=== PATIENT | female | born 1965 ===

== ENCOUNTER 2019-09-13 00:03 | Day surgery (SDC) | payer OTHER ==
[~2019-09-13 00:03] MED LIST: ATOR20 PO; DYMISTA NASAL S23 GM NS; FAMO40; Loratadine10 MG PO; NEBI5 PO; PREG50 PO; XYZAL5 MG PO; Xolair150 MG; ZYRTEC10 M2
== END 2019-09-13 09:55 | disposition home or self-care (01) ==
LOC: ATC 00:03
DX: L50.1 Idiopathic urticaria (principal); I10 Essential (primary) hypertension; E78.00 Pure hypercholesterolemia, unspecified; Z88.8 Allergy status to other drugs, medicaments and biological substances; Z79.899 Other long term (current) drug therapy
CPT/HCPCS: J2357

== ENCOUNTER 2019-12-06 00:03 | Day surgery (SDC) | payer OTHER ==
--- NOTE | 2019-12-06 08:34 | NUR ---
PT DECLINES STAYING 30 MIN POST INJECTION. SHE REPORTS SHE NO LONGER DOES THIS, HAS BEEN TAKING XOLAIR FOR 5 YEARS. SHE REPORTS SHE CARRIES AN EPI EPN WITH HER AT ALL TIMES.
--- NOTE | 2019-12-06 08:49 | NUR ---
PT REPORTS SHE TOOK HER BP MEDS TODAY. SHE STATES SHE WILL RE CHECK HER BP WHEN SHE GETS HOME.
== END 2019-12-06 08:27 | disposition home or self-care (01) ==
LOC: ATC 00:03
DX: L50.1 Idiopathic urticaria (principal); I10 Essential (primary) hypertension; E78.00 Pure hypercholesterolemia, unspecified; Z79.899 Other long term (current) drug therapy; Z88.8 Allergy status to other drugs, medicaments and biological substances; J30.9 Allergic rhinitis, unspecified
CPT/HCPCS: 96372; J2357

== ENCOUNTER 2020-01-31 08:04 | Day surgery (SDC) | payer OTHER | END 2020-01-31 08:42 | disposition home or self-care (01) | LOC: ATC 08:04 | DX: L50.1 Idiopathic urticaria (principal); I10 Essential (primary) hypertension; G47.33 Obstructive sleep apnea (adult) (pediatric); E78.2 Mixed hyperlipidemia; Z79.899 Other long term (current) drug therapy | CPT/HCPCS: 96372; J2357 ==

== ENCOUNTER 2020-02-28 00:10 | Day surgery (SDC) | payer OTHER | END 2020-02-28 08:20 | disposition home or self-care (01) | LOC: ATC 00:10 | DX: L50.1 Idiopathic urticaria (principal); E78.5 Hyperlipidemia, unspecified; I10 Essential (primary) hypertension; G47.33 Obstructive sleep apnea (adult) (pediatric); Z79.899 Other long term (current) drug therapy; Z79.82 Long term (current) use of aspirin | CPT/HCPCS: 96372; J2357 ==

== ENCOUNTER 2020-03-27 00:31 | Day surgery (SDC) | payer OTHER | END 2020-03-27 08:22 | disposition home or self-care (01) | LOC: ATC 00:31 | DX: L50.1 Idiopathic urticaria (principal); E78.5 Hyperlipidemia, unspecified; I10 Essential (primary) hypertension; G47.33 Obstructive sleep apnea (adult) (pediatric); E78.2 Mixed hyperlipidemia; E66.3 Overweight; Z68.34 Body mass index [BMI] 34.0-34.9, adult; Z79.899 Other long term (current) drug therapy | CPT/HCPCS: J2357 ==

== ENCOUNTER 2020-04-24 00:18 | Day surgery (SDC) | payer OTHER | END 2020-04-24 08:22 | disposition home or self-care (01) | LOC: ATC 00:18 | DX: L50.1 Idiopathic urticaria (principal); E78.2 Mixed hyperlipidemia; G47.33 Obstructive sleep apnea (adult) (pediatric); I10 Essential (primary) hypertension; I69.398 Other sequelae of cerebral infarction; Z88.8 Allergy status to other drugs, medicaments and biological substances; Z79.899 Other long term (current) drug therapy | CPT/HCPCS: J2357 ==

== ENCOUNTER 2020-05-22 00:12 | Day surgery (SDC) | payer OTHER ==
--- NOTE | 2020-05-22 08:31 | NUR ---
PT DECLINES 30 MIN OBSERVATION POST INJECTION. NO HISTORY OF REACTION TO MED. PT TO RETURN TO HOSPITAL IF SHE EXPERIENCES ANY REACTIONS
== END 2020-05-22 08:30 | disposition home or self-care (01) ==
LOC: ATC 00:12
DX: L50.1 Idiopathic urticaria (principal); I10 Essential (primary) hypertension; G47.33 Obstructive sleep apnea (adult) (pediatric); E78.2 Mixed hyperlipidemia; E66.3 Overweight; Z68.34 Body mass index [BMI] 34.0-34.9, adult; Z88.8 Allergy status to other drugs, medicaments and biological substances
CPT/HCPCS: J2357

== ENCOUNTER 2020-06-19 00:07 | Day surgery (SDC) | payer OTHER | END 2020-06-19 08:26 | disposition home or self-care (01) | LOC: ATC 00:07 | DX: L50.1 Idiopathic urticaria (principal); E78.2 Mixed hyperlipidemia; I10 Essential (primary) hypertension; G47.33 Obstructive sleep apnea (adult) (pediatric); Z88.2 Allergy status to sulfonamides | CPT/HCPCS: 96372; J2357 ==

== ENCOUNTER 2020-07-17 00:18 | Day surgery (SDC) | payer OTHER | END 2020-07-17 08:24 | disposition home or self-care (01) | LOC: ATC 00:18 | DX: L50.1 Idiopathic urticaria (principal); I10 Essential (primary) hypertension; E78.2 Mixed hyperlipidemia | CPT/HCPCS: 96372; J2357 ==

== ENCOUNTER 2020-08-14 00:19 | Day surgery (SDC) | payer OTHER | END 2020-08-14 08:28 | disposition home or self-care (01) | LOC: ATC 00:19 | DX: L50.1 Idiopathic urticaria (principal); L50.8 Other urticaria; E78.5 Hyperlipidemia, unspecified; G47.33 Obstructive sleep apnea (adult) (pediatric); I10 Essential (primary) hypertension | CPT/HCPCS: 96372; J2357 ==

== ENCOUNTER 2020-09-11 00:35 | Day surgery (SDC) | payer OTHER ==
--- NOTE | 2020-09-11 08:39 | NUR ---
PT REFUSED TO STAY 30 MINUTES.
== END 2020-09-11 08:34 | disposition home or self-care (01) ==
LOC: ATC 00:35
DX: L50.1 Idiopathic urticaria (principal); I10 Essential (primary) hypertension
CPT/HCPCS: 96372; J2357

== ENCOUNTER 2020-10-09 00:24 | Day surgery (SDC) | payer MEDICARE, OTHER | END 2020-10-09 08:20 | disposition home or self-care (01) | LOC: ATC 00:24 | DX: L50.1 Idiopathic urticaria (principal); E78.5 Hyperlipidemia, unspecified; G47.33 Obstructive sleep apnea (adult) (pediatric); I10 Essential (primary) hypertension; I69.398 Other sequelae of cerebral infarction; Z79.82 Long term (current) use of aspirin | CPT/HCPCS: 96372; J2357 ==

== ENCOUNTER 2020-11-06 00:03 | Day surgery (SDC) | payer MEDICARE, OTHER | END 2020-11-06 08:20 | disposition home or self-care (01) | LOC: ATC 00:03 | DX: L50.1 Idiopathic urticaria (principal); I10 Essential (primary) hypertension; I69.398 Other sequelae of cerebral infarction; E78.2 Mixed hyperlipidemia; Z88.8 Allergy status to other drugs, medicaments and biological substances | CPT/HCPCS: 96372; J2357 ==

== ENCOUNTER 2020-12-04 00:07 | Day surgery (SDC) | payer MEDICARE, OTHER | END 2020-12-04 08:25 | disposition home or self-care (01) | LOC: ATC 00:07 | DX: L50.1 Idiopathic urticaria (principal); E78.2 Mixed hyperlipidemia; I10 Essential (primary) hypertension; I69.398 Other sequelae of cerebral infarction; Z79.899 Other long term (current) drug therapy | CPT/HCPCS: J2357 ==

== ENCOUNTER 2021-01-01 00:31 | Day surgery (SDC) | payer MEDICARE, OTHER ==
--- NOTE | 2021-01-01 08:45 | NUR ---
FAX REQUEST FOR NEW ORDERS AND NEW H&P SENT TO DR VICENTE. ORDERS 01/14/21 AND PT'S NEXT APPT IS 01/29/21. PT IS ALSO GOING TO CALL DR VICENTE'S OFFICE AND LET THEM KNOW TO SEND ORDERS AND TO LOOK FOR OUR FAX REQUEST.
== END 2021-01-01 08:25 | disposition home or self-care (01) ==
LOC: ATC 00:31
DX: L50.1 Idiopathic urticaria (principal); I10 Essential (primary) hypertension; E78.5 Hyperlipidemia, unspecified; Z88.8 Allergy status to other drugs, medicaments and biological substances
CPT/HCPCS: 96372; J2357

== ENCOUNTER 2021-03-26 05:45 | Day surgery (SDC) | payer MEDICARE, OTHER | END 2021-03-26 08:53 | disposition home or self-care (01) | LOC: ATC 05:45 | DX: L50.1 Idiopathic urticaria (principal) | CPT/HCPCS: 96372; J2357 ==

== ENCOUNTER 2021-05-21 03:52 | Day surgery (SDC) | payer MEDICARE, OTHER | END 2021-05-21 08:51 | disposition home or self-care (01) | LOC: ATC 03:52 | DX: L50.8 Other urticaria (principal) | CPT/HCPCS: J2357 ==

== ENCOUNTER 2021-06-18 03:33 | Day surgery (SDC) | payer MEDICARE, OTHER ==
[2021-06-18] MEDS ORDERED: MELO7.5 PO (08:45)
== END 2021-06-18 08:50 | disposition home or self-care (01) ==
LOC: ATC 03:33
DX: L50.8 Other urticaria (principal)
CPT/HCPCS: J2357

== ENCOUNTER 2021-06-29 06:45 | Day surgery (SDC) | payer MEDICARE, OTHER ==
[~2021-06-29] VITALS: Ht 165.1 cm; Wt 92.2 kg
[~2021-06-29 06:45] MED LIST changes: +MELO7.5 PO
--- NOTE | 2021-06-29 09:45 | NUR ---
06/29/21 0945 [facility] [facility] LATE ENTRY: 3CC OF LOCAL INJECTED BY SURGEON
== END 2021-06-29 09:48 | disposition home or self-care (01) ==
LOC: ORSCSDS 06:45
PROVIDERS: Orthopaedic Surgery
PROC: 0JBN0ZZ Excision of Right Lower Leg Subcutaneous Tissue and Fascia, Open Approach (ICD-10-PCS; principal; 2021-06-29 08:00)
DX: L72.0 Epidermal cyst (principal); I10 Essential (primary) hypertension; G47.33 Obstructive sleep apnea (adult) (pediatric); E78.00 Pure hypercholesterolemia, unspecified; I69.344 Monoplegia of lower limb following cerebral infarction affecting left non-dominant side; Z79.899 Other long term (current) drug therapy; Z79.82 Long term (current) use of aspirin
CPT/HCPCS: 88304; J0171; J0690; J1100; J1885; J2250; J2405; J2704; J3010; J7120

== ENCOUNTER 2021-07-16 01:52 | Day surgery (SDC) | payer MEDICARE, OTHER | END 2021-07-16 08:38 | disposition home or self-care (01) | LOC: ATC 01:52 | DX: L50.8 Other urticaria (principal) | CPT/HCPCS: J2357 ==

== ENCOUNTER 2021-08-13 01:55 | Day surgery (SDC) | payer MEDICARE, OTHER | END 2021-08-13 09:07 | disposition home or self-care (01) | LOC: ATC 01:55 | DX: L50.8 Other urticaria (principal) | CPT/HCPCS: J2357 ==

== ENCOUNTER 2021-09-10 01:36 | Day surgery (SDC) | payer MEDICARE, OTHER ==
[~2021-09-10 01:36] MED LIST changes: -Xolair150 MG; +Xolair150 MG SC
== END 2021-09-10 08:35 | disposition home or self-care (01) ==
LOC: ATC 01:36
DX: L50.8 Other urticaria (principal)
CPT/HCPCS: J2357

== ENCOUNTER 2021-11-05 00:56 | Day surgery (SDC) | payer MEDICARE, OTHER | END 2021-11-05 08:17 | disposition home or self-care (01) | LOC: ATC 00:56 | DX: L50.8 Other urticaria (principal) | CPT/HCPCS: 96372; J2357 ==

== ENCOUNTER 2021-12-03 00:22 | Day surgery (SDC) | payer MEDICARE, OTHER | END 2021-12-03 09:07 | disposition home or self-care (01) | LOC: ATC 00:22 | DX: L50.8 Other urticaria (principal) | CPT/HCPCS: 96372; J2357 ==

== ENCOUNTER 2021-12-31 02:03 | Day surgery (SDC) | payer MEDICARE, OTHER | END 2021-12-31 09:02 | disposition home or self-care (01) | LOC: ATC 02:03 | DX: L50.1 Idiopathic urticaria (principal) | CPT/HCPCS: J2357 ==

== ENCOUNTER 2022-01-27 00:33 | Day surgery (SDC) | payer MEDICARE, OTHER | END 2022-01-27 09:07 | disposition home or self-care (01) | LOC: ATC 00:33 | DX: L50.8 Other urticaria (principal) | CPT/HCPCS: 96372; J2357 ==

== ENCOUNTER 2022-03-25 00:43 | Day surgery (SDC) | payer MEDICARE, OTHER | END 2022-03-25 08:45 | disposition home or self-care (01) | LOC: ATC 00:43 | DX: L50.1 Idiopathic urticaria (principal) | CPT/HCPCS: 96372; J2357 ==

== ENCOUNTER 2022-04-22 01:09 | Day surgery (SDC) | payer MEDICARE, OTHER | END 2022-04-22 09:08 | disposition home or self-care (01) | LOC: ATC 01:09 | DX: L50.8 Other urticaria (principal) | CPT/HCPCS: 96372; J2357 ==

== ENCOUNTER 2022-05-20 02:06 | Day surgery (SDC) | payer MEDICARE, OTHER | END 2022-05-20 09:00 | disposition home or self-care (01) | LOC: ATC 02:06 | DX: L50.8 Other urticaria (principal) | CPT/HCPCS: 96372; J2357 ==

== ENCOUNTER 2022-07-15 00:33 | Day surgery (SDC) | payer MEDICARE, OTHER ==
[~2022-07-15 00:33] MED LIST changes: +ROSUVASTATIN CAL5 MG PO
== END 2022-07-15 08:42 | disposition home or self-care (01) ==
LOC: ATC 00:33
DX: L50.1 Idiopathic urticaria (principal)
CPT/HCPCS: J2357

== ENCOUNTER 2022-11-04 03:16 | Day surgery (SDC) | payer MEDICARE, OTHER ==
[~2022-11-04 03:16] MED LIST changes: +ATOR10 PO
[2022-11-04 08:34] VITALS: BP 145/76
== END 2022-11-04 08:40 | disposition home or self-care (01) ==
LOC: ATC 03:16
DX: L50.1 Idiopathic urticaria (principal)
CPT/HCPCS: 96372; J2357

== ENCOUNTER 2022-12-02 01:02 | Day surgery (SDC) | payer MEDICARE, OTHER ==
[2022-12-02 08:52] VITALS: BP 153/77
== END 2022-12-02 09:00 | disposition home or self-care (01) ==
LOC: ATC 01:02
DX: L50.0 Allergic urticaria (principal)
CPT/HCPCS: 96372; J2357

== ENCOUNTER 2022-12-30 02:14 | Day surgery (SDC) | payer MEDICARE, OTHER ==
[2022-12-30 08:37] VITALS: BP 159/82
[2022-12-30] MEDS ORDERED: CLOP75 PO (08:52)
[2022-12-30] MEDS ORDERED: Atarax10 MG PO (08:52)
== END 2022-12-30 08:42 | disposition home or self-care (01) ==
LOC: ATC 02:14
DX: L50.1 Idiopathic urticaria (principal); I10 Essential (primary) hypertension; Z88.8 Allergy status to other drugs, medicaments and biological substances; Z79.899 Other long term (current) drug therapy
CPT/HCPCS: 96372; J2357

== ENCOUNTER 2023-01-27 03:22 | Day surgery (SDC) | payer MEDICARE, OTHER ==
[~2023-01-27 03:22] MED LIST changes: +Atarax10 MG PO; +CLOP75 PO
[2023-01-27 08:44] VITALS: BP 154/81
== END 2023-01-27 08:52 | disposition home or self-care (01) ==
LOC: ATC 03:22
DX: L50.1 Idiopathic urticaria (principal); I10 Essential (primary) hypertension; Z88.8 Allergy status to other drugs, medicaments and biological substances
CPT/HCPCS: 96372; J2357

== ENCOUNTER 2023-02-24 00:09 | Day surgery (SDC) | payer MEDICARE, OTHER ==
[2023-02-24 08:59] VITALS: BP 151/90
== END 2023-02-24 09:07 | disposition home or self-care (01) ==
LOC: ATC 00:09
DX: L50.9 Urticaria, unspecified (principal); I10 Essential (primary) hypertension
CPT/HCPCS: 96372; J2357

== ENCOUNTER 2023-03-24 02:09 | Day surgery (SDC) | payer MEDICARE, OTHER ==
[2023-03-24 08:37] VITALS: BP 143/97
== END 2023-03-24 08:42 | disposition home or self-care (01) ==
LOC: ATC 02:09
DX: L50.9 Urticaria, unspecified (principal)
CPT/HCPCS: 96372; J2357

== ENCOUNTER 2023-04-21 02:55 | Day surgery (SDC) | payer MEDICARE, OTHER ==
[2023-04-21 08:54] VITALS: BP 171/92
== END 2023-04-21 09:00 | disposition home or self-care (01) ==
LOC: ATC 02:55
DX: L50.0 Allergic urticaria (principal); L50.1 Idiopathic urticaria; I10 Essential (primary) hypertension; Z88.8 Allergy status to other drugs, medicaments and biological substances; Z86.73 Personal history of transient ischemic attack (TIA), and cerebral infarction without residual deficits
CPT/HCPCS: 96372; J2357

== ENCOUNTER 2023-05-20 01:43 | Day surgery (SDC) | payer MEDICARE, OTHER ==
[2023-05-20 09:20] VITALS: BP 139/82
== END 2023-05-20 09:30 | disposition home or self-care (01) ==
LOC: ATC 01:43
DX: L50.1 Idiopathic urticaria (principal); Z86.73 Personal history of transient ischemic attack (TIA), and cerebral infarction without residual deficits
CPT/HCPCS: 96372; J2357

== ENCOUNTER 2023-06-16 01:54 | Day surgery (SDC) | payer MEDICARE, OTHER ==
[2023-06-16 09:11] VITALS: BP 144/91
== END 2023-06-16 09:20 | disposition home or self-care (01) ==
LOC: ATC 01:54
DX: L50.1 Idiopathic urticaria (principal); Z86.73 Personal history of transient ischemic attack (TIA), and cerebral infarction without residual deficits
CPT/HCPCS: 96372; J2357

== ENCOUNTER 2023-07-14 07:42 | Day surgery (SDC) | payer MEDICARE, OTHER ==
[~2023-07-14 07:42] MED LIST changes: +Omalizumab 150 MG Syringe SC SCH
[2023-07-14 09:05] VITALS: BP 148/72
== END 2023-07-14 09:05 | disposition home or self-care (01) ==
LOC: ATC 07:42
DX: L50.1 Idiopathic urticaria (principal); Z88.8 Allergy status to other drugs, medicaments and biological substances; Z79.899 Other long term (current) drug therapy
CPT/HCPCS: 96372; J2357

== ENCOUNTER 2023-11-04 03:36 | Day surgery (SDC) | payer MEDICARE, OTHER ==
[~2023-11-04 03:36] MED LIST changes: -Omalizumab 150 MG Syringe SC SCH
[2023-11-04] MEDS ORDERED: Omalizumab 150 MG Syringe SC SCH (06:55)
[2023-11-04 16:08] VITALS: BP 150/91
== END 2023-11-04 16:19 | disposition home or self-care (01) ==
LOC: ATC 03:36
DX: L50.0 Allergic urticaria (principal); E78.00 Pure hypercholesterolemia, unspecified; I10 Essential (primary) hypertension
CPT/HCPCS: 96372; J2357

== ENCOUNTER 2023-12-01 02:46 | Day surgery (SDC) | payer MEDICARE, OTHER ==
[2023-12-01] MEDS ORDERED: Omalizumab 150 MG Syringe SC SCH (06:00)
[2023-12-01 09:18] VITALS: BP 152/88
== END 2023-12-01 09:26 | disposition home or self-care (01) ==
LOC: ATC 02:46
DX: L50.9 Urticaria, unspecified (principal)
CPT/HCPCS: 96372; J2357

== ENCOUNTER 2024-01-27 01:18 | Day surgery (SDC) | payer MEDICARE, OTHER ==
[~2024-01-27 01:18] MED LIST changes: +AZELASTINE137 MCG/01; +EYE ALLERGY IT2.5 ML; +Flonase 0.05% N16 GM; +XOLAIR300 MG/2 M
[2024-01-27] MEDS ORDERED: Omalizumab 150 MG Syringe SC SCH (07:10)
[2024-01-27 09:01] VITALS: BP 158/85
[2024-01-27] MEDS ORDERED: Aspir 8181 MG PO (09:03)
== END 2024-01-27 09:10 | disposition home or self-care (01) ==
LOC: ATC 01:18
DX: L50.9 Urticaria, unspecified (principal); E89.41 Symptomatic postprocedural ovarian failure
CPT/HCPCS: 96372; J2357

== ENCOUNTER 2024-02-23 04:06 | Day surgery (SDC) | payer MEDICARE, OTHER ==
[~2024-02-23 04:06] MED LIST changes: +Aspir 8181 MG PO
[2024-02-23] MEDS ORDERED: Omalizumab 150 MG Syringe SC SCH (06:55)
[2024-02-23 09:07] VITALS: BP 146/75
== END 2024-02-23 09:08 | disposition home or self-care (01) ==
LOC: ATC 04:06
DX: T78.3XXA Angioneurotic edema, initial encounter (principal); I10 Essential (primary) hypertension; E78.00 Pure hypercholesterolemia, unspecified; E89.41 Symptomatic postprocedural ovarian failure; Z79.82 Long term (current) use of aspirin; Z79.899 Other long term (current) drug therapy; Z88.8 Allergy status to other drugs, medicaments and biological substances; Z86.73 Personal history of transient ischemic attack (TIA), and cerebral infarction without residual deficits
CPT/HCPCS: 96372; J2357

== ENCOUNTER 2024-03-22 01:44 | Day surgery (SDC) | payer MEDICARE, OTHER ==
[2024-03-22] MEDS ORDERED: Omalizumab 150 MG Syringe SC SCH (07:05)
[2024-03-22 08:57] VITALS: BP 147/98
== END 2024-03-22 09:02 | disposition home or self-care (01) ==
LOC: ATC 01:44
DX: L50.1 Idiopathic urticaria (principal); I10 Essential (primary) hypertension; E78.00 Pure hypercholesterolemia, unspecified; E89.40 Asymptomatic postprocedural ovarian failure; Z79.899 Other long term (current) drug therapy; Z88.8 Allergy status to other drugs, medicaments and biological substances; Z86.73 Personal history of transient ischemic attack (TIA), and cerebral infarction without residual deficits
CPT/HCPCS: 96372; J2357

== ENCOUNTER 2024-04-19 02:15 | Day surgery (SDC) | payer MEDICARE, OTHER ==
[2024-04-19] MEDS ORDERED: Omalizumab 150 MG Syringe SC SCH (06:50)
[2024-04-19 09:20] VITALS: BP 136/90
== END 2024-04-19 09:22 | disposition home or self-care (01) ==
LOC: ATC 02:15
DX: L50.1 Idiopathic urticaria (principal); I10 Essential (primary) hypertension; E78.00 Pure hypercholesterolemia, unspecified; Z79.899 Other long term (current) drug therapy
CPT/HCPCS: 96372; J2357

== ENCOUNTER 2024-05-17 03:01 | Day surgery (SDC) | payer MEDICARE, OTHER ==
[2024-05-17] MEDS ORDERED: Omalizumab 150 MG Syringe SC SCH (06:00)
[2024-05-17 08:57] VITALS: BP 140/91
== END 2024-05-17 09:02 | disposition home or self-care (01) ==
LOC: ATC 03:01
DX: L50.1 Idiopathic urticaria (principal); I10 Essential (primary) hypertension; E78.00 Pure hypercholesterolemia, unspecified; Z79.899 Other long term (current) drug therapy
CPT/HCPCS: 96372; J2357

== ENCOUNTER 2024-06-14 03:51 | Day surgery (SDC) | payer MEDICARE, OTHER ==
[2024-06-14] MEDS ORDERED: Omalizumab 150 MG Syringe SC SCH (07:25)
== END 2024-06-14 09:17 | disposition home or self-care (01) ==
LOC: ATC 03:51
DX: L50.1 Idiopathic urticaria (principal); E89.41 Symptomatic postprocedural ovarian failure; E78.00 Pure hypercholesterolemia, unspecified; I10 Essential (primary) hypertension
CPT/HCPCS: 96372; J2357

== ENCOUNTER 2024-07-12 01:23 | Day surgery (SDC) | payer MEDICARE, OTHER ==
[2024-07-12] MEDS ORDERED: Omalizumab 150 MG Syringe SC SCH (06:55)
[2024-07-12 08:57] VITALS: BP 148/85
== END 2024-07-12 09:03 | disposition home or self-care (01) ==
LOC: ATC 01:23
DX: L50.1 Idiopathic urticaria (principal); E89.41 Symptomatic postprocedural ovarian failure; E78.00 Pure hypercholesterolemia, unspecified; I10 Essential (primary) hypertension
CPT/HCPCS: 96372; J2357

== ENCOUNTER 2024-08-09 02:07 | Day surgery (SDC) | payer MEDICARE, OTHER ==
[2024-08-09] MEDS ORDERED: Omalizumab 150 MG Syringe SC SCH (07:05)
[2024-08-09 09:31] VITALS: BP 134/81
== END 2024-08-09 09:32 | disposition home or self-care (01) ==
LOC: ATC 02:07
DX: L50.1 Idiopathic urticaria (principal); I10 Essential (primary) hypertension; E78.00 Pure hypercholesterolemia, unspecified; Z79.82 Long term (current) use of aspirin; Z79.899 Other long term (current) drug therapy; Z86.73 Personal history of transient ischemic attack (TIA), and cerebral infarction without residual deficits
CPT/HCPCS: 96372; J2357

== ENCOUNTER 2024-09-06 02:09 | Day surgery (SDC) | payer MEDICARE, OTHER ==
[2024-09-06] MEDS ORDERED: Omalizumab 150 MG Syringe SC SCH (07:00)
[2024-09-06 09:20] VITALS: BP 154/78
== END 2024-09-06 09:24 | disposition home or self-care (01) ==
LOC: ATC 02:09
DX: L50.1 Idiopathic urticaria (principal); I10 Essential (primary) hypertension; Z79.899 Other long term (current) drug therapy
CPT/HCPCS: 96372; J2357

== ENCOUNTER 2024-10-04 05:51 | Day surgery (SDC) | payer MEDICARE, OTHER ==
[2024-10-04] MEDS ORDERED: Omalizumab 150 MG Syringe SC SCH (06:55)
[2024-10-04 09:00] VITALS: BP 163/94
== END 2024-10-04 09:11 | disposition home or self-care (01) ==
LOC: ATC 05:51
DX: L50.1 Idiopathic urticaria (principal); I10 Essential (primary) hypertension; Z79.899 Other long term (current) drug therapy
CPT/HCPCS: 96372; J2357

== ENCOUNTER 2024-11-01 08:31 | Day surgery (SDC) | payer MEDICARE, OTHER ==
[~2024-11-01 08:31] MED LIST changes: +Omalizumab 150 MG Syringe SC SCH
[2024-11-01 08:41] VITALS: BP 147/80
[2024-11-01] MEDS ORDERED: TRAZ50 PO (08:41)
== END 2024-11-01 08:46 | disposition home or self-care (01) ==
LOC: ATC 08:31
DX: L50.1 Idiopathic urticaria (principal); E89.41 Symptomatic postprocedural ovarian failure; I10 Essential (primary) hypertension; E78.00 Pure hypercholesterolemia, unspecified; Z86.73 Personal history of transient ischemic attack (TIA), and cerebral infarction without residual deficits; Z79.82 Long term (current) use of aspirin; Z79.899 Other long term (current) drug therapy
CPT/HCPCS: 96372; J2357

== ENCOUNTER 2024-11-29 05:16 | Day surgery (SDC) | payer MEDICARE, OTHER ==
[~2024-11-29 05:16] MED LIST changes: -Omalizumab 150 MG Syringe SC SCH; +TRAZ50 PO
[2024-11-29] MEDS ORDERED: Omalizumab 150 MG Syringe SC SCH (06:50)
[2024-11-29 09:27] VITALS: BP 152/79
== END 2024-11-29 09:32 | disposition home or self-care (01) ==
LOC: ATC 05:16
DX: L50.1 Idiopathic urticaria (principal); I10 Essential (primary) hypertension; Z79.899 Other long term (current) drug therapy; Z79.82 Long term (current) use of aspirin
CPT/HCPCS: 96372; J2357

== ENCOUNTER 2024-12-27 00:32 | Day surgery (SDC) | payer MEDICARE, OTHER ==
[2024-12-27] MEDS ORDERED: Omalizumab 150 MG Syringe SC SCH (07:10)
[2024-12-27 09:23] VITALS: BP 151/78
== END 2024-12-27 09:29 | disposition home or self-care (01) ==
LOC: ATC 00:32
DX: L50.1 Idiopathic urticaria (principal); E89.41 Symptomatic postprocedural ovarian failure; I10 Essential (primary) hypertension; E78.00 Pure hypercholesterolemia, unspecified; Z86.73 Personal history of transient ischemic attack (TIA), and cerebral infarction without residual deficits; Z79.82 Long term (current) use of aspirin; Z79.899 Other long term (current) drug therapy
CPT/HCPCS: 96372; J2357

== ENCOUNTER 2025-01-24 08:00 | Day surgery (SDC) | payer MEDICARE, OTHER ==
[~2025-01-24 08:00] MED LIST changes: +Omalizumab 150 MG Syringe SC SCH
[2025-01-24 08:21] VITALS: BP 141/83
== END 2025-01-24 23:00 | disposition home or self-care (01) ==
LOC: ATC 08:00
DX: L50.1 Idiopathic urticaria (principal); E89.41 Symptomatic postprocedural ovarian failure; I10 Essential (primary) hypertension; E78.00 Pure hypercholesterolemia, unspecified; Z79.899 Other long term (current) drug therapy; Z88.6 Allergy status to analgesic agent; Z88.8 Allergy status to other drugs, medicaments and biological substances; Z86.73 Personal history of transient ischemic attack (TIA), and cerebral infarction without residual deficits
CPT/HCPCS: 96372; J2357

== ENCOUNTER 2025-02-21 01:07 | Day surgery (SDC) | payer MEDICARE, OTHER ==
[~2025-02-21 01:07] MED LIST changes: -Omalizumab 150 MG Syringe SC SCH
[2025-02-21] MEDS ORDERED: Omalizumab 150 MG Syringe SC SCH (07:00)
[2025-02-21 09:36] VITALS: BP 163/87
== END 2025-02-21 09:56 | disposition home or self-care (01) ==
LOC: ATC 01:07
DX: L50.1 Idiopathic urticaria (principal); I10 Essential (primary) hypertension; Z79.899 Other long term (current) drug therapy
CPT/HCPCS: 96372; J2357

== ENCOUNTER 2025-03-21 01:25 | Day surgery (SDC) | payer MEDICARE, OTHER ==
[2025-03-21] MEDS ORDERED: Omalizumab 150 MG Syringe SC SCH (06:00)
[2025-03-21 08:33] VITALS: BP 153/86
== END 2025-03-21 08:38 | disposition home or self-care (01) ==
LOC: ATC 01:25
DX: L50.1 Idiopathic urticaria (principal); E89.41 Symptomatic postprocedural ovarian failure; I10 Essential (primary) hypertension; E78.00 Pure hypercholesterolemia, unspecified; Z79.899 Other long term (current) drug therapy; Z86.73 Personal history of transient ischemic attack (TIA), and cerebral infarction without residual deficits
CPT/HCPCS: 96372; J2357

== ENCOUNTER 2025-03-25 06:30 | Day surgery (SDC) | payer MEDICARE, OTHER ==
[~2025-03-25] VITALS: Ht 165.1 cm; Wt 92.5 kg
[2025-03-25] MEDS ORDERED: Bupivacaine 0.5% W/EPI 1:200000 SDV 30 ML Vial ONE (06:54)
[2025-03-25] MEDS ORDERED: FentaNYL Citrate 50 MCG/ML 2 ML Injection ONE (08:00)
[2025-03-25] MEDS ORDERED: Midazolam HCl 1MG / ML 2ML Vial ONE (08:00)
--- NOTE | 2025-03-25 08:00 | NUR ---
[phone] LOPEZ EXAMINED OPERATIVE FOOT AND SAW THAT THERE IS AN OPEN SPOT AND BRUISE FROM PUTTING HER BOOT ON AND IT CAUGHT ON THE HARDWARE BEING REMOVED TODAY.
[2025-03-25] MEDS ORDERED: CeFAZolin Sodium 2,000 MG VIAL ONE (08:01)
[2025-03-25] MEDS ORDERED: Glycopyrrolate 0.2 MG/ML 5ML VIAL ONE (08:46)
[2025-03-25] MEDS ORDERED: Ketorolac Tromethamine 30mg Vial ONE (08:46)
--- NOTE | 2025-03-25 08:59 | NUR ---
03/25/[address] REMOVED LMA JUST PRIOR TO ENTERING PACU. CURRENTLY PT SNORING
[2025-03-25 09:17] VITALS: BP 120/81
[2025-03-25] MEDS ORDERED: HYDROcodone 5-APAP 325 TAB ONE (09:43)
--- NOTE | 2025-03-25 10:03 | NUR ---
03/25/25 1003 ELAINE IRIZARRY PT UP TO THE BATHROOM PRIOR TO DC.
== END 2025-03-25 10:03 | disposition home or self-care (01) ==
LOC: ORSCSDS 06:30
PROVIDERS: Podiatrist Foot & Ankle Surgery
PROC: 0YPB0YZ Removal of Other Device from Left Lower Extremity, Open Approach (ICD-10-PCS; principal; 2025-03-25 08:00)
DX: T84.84XA Pain due to internal orthopedic prosthetic devices, implants and grafts, initial encounter (principal); I10 Essential (primary) hypertension; E78.5 Hyperlipidemia, unspecified; G47.33 Obstructive sleep apnea (adult) (pediatric); E66.9 Obesity, unspecified; Z68.33 Body mass index [BMI] 33.0-33.9, adult; Z79.82 Long term (current) use of aspirin; Z79.899 Other long term (current) drug therapy
CPT/HCPCS: A6253; A9270; J0690; J1885; J2250; J2704; J3010; J7120

== ENCOUNTER 2025-04-18 00:12 | Day surgery (SDC) | payer MEDICARE, OTHER ==
[2025-04-18] MEDS ORDERED: Omalizumab 150 MG Syringe SC SCH (06:00)
[2025-04-18 08:24] VITALS: BP 138/85
== END 2025-04-18 08:31 | disposition home or self-care (01) ==
LOC: ATC 00:12
DX: L50.1 Idiopathic urticaria (principal); E89.41 Symptomatic postprocedural ovarian failure; I10 Essential (primary) hypertension; E78.00 Pure hypercholesterolemia, unspecified; G47.00 Insomnia, unspecified; Z86.73 Personal history of transient ischemic attack (TIA), and cerebral infarction without residual deficits
CPT/HCPCS: 96372; J2357